=== PATIENT | female | born 1955 ===

== ENCOUNTER 2023-08-02 09:11 | Outpatient (CLI) | payer OTHER | END 2023-08-02 09:20 | disposition home or self-care (01) | LOC: MRI 09:11 | PROVIDERS: ATTEND Internal Medicine Gastroenterology | DX: R10.13 Epigastric pain (principal); R93.2 Abnormal findings on diagnostic imaging of liver and biliary tract; R93.3 Abnormal findings on diagnostic imaging of other parts of digestive tract; K86.2 Cyst of pancreas | CPT/HCPCS: 74183; Q9965 ==

== ENCOUNTER 2024-08-19 08:21 | Outpatient (CLI) | payer OTHER | END 2024-08-19 08:33 | disposition home or self-care (01) | LOC: MRI 08:21 | DX: K86.9 Disease of pancreas, unspecified (principal) | CPT/HCPCS: 72196; 74182; Q9965; 72197; 74183 ==